=== PATIENT | male | born 1955 | race Caucasian/White ===

== ENCOUNTER 2016-12-06 15:15 | Inpatient (IN) | payer OTHER, MEDICAID ==
[~2016-12-06] VITALS: Ht 177.8 cm; Wt 64.0 kg
[~2016-12-06 15:15] MED LIST: BISA5TAB10 PR; DORZ10DR8 EACH EYE; DULR10 RC; ENOX40DI8 SQ; IPRA4AER INH; LEVE500P IV; LORA0.5T PO; MERO1VIA3 IVPB; METH40VI IVP; NITR0.4T6 SL; OCTR100D IVP; TYLR650 RC; ZINC113O14 TP; [UNRECOGNIZED DRUG - CODE] IVP; [UNRECOGNIZED DRUG - CODE] SUBCUT
[2016-12-06 15:20] VITALS: BP_SYST 123
[2016-12-06 16:48] LABS: BASOPHILS # (AUTO) 0.2 K/uL (0.0-0.2); BASOPHILS % (AUTO) 1.1 % (0.0-2.0); HEMATOCRIT 31.5 % (36-54); HEMOGLOBIN 10.4 g/dL (14.0-18.0); LYMPHOCYTES # (AUTO) 0.4 K/uL (1.0-5.5); LYMPHOCYTES % (AUTO) 2.9 % (20.5-51.5); MEAN CORPUSCULAR HEMOGLOBIN 34 pg (27-31); MEAN CORPUSCULAR HGB CONC 33 % (32-36); MEAN CORPUSCULAR VOLUME 103 fL (79.0-98.0); MONOCYTES # (AUTO) 0.9 K/uL (0.0-1.0); MONOCYTES % (AUTO) 6.3 % (1.7-9.3); NEUTROPHILS # (AUTO) 13.4 K/uL (1.8-7.7); NEUTROPHILS % (AUTO) 89.7 % (40.0-70.0); PLATELET COUNT (AUTO) 124 K/uL (130-430); RED BLOOD CELL COUNT(AUTO) 3.06 MIL/uL (4.2-6.2); RED CELL DISTRIBUTION WIDTH 13.8 % (9.0-15.0); WHITE BLOOD COUNT (AUTO) 14.9 K/uL (4.8-10.8)
[2016-12-06] MEDS ORDERED: VANCOMYCIN HCL 1000 MG/VIAL IV ONE (16:57)
[2016-12-06] MEDS ORDERED: NACL 0.9% 1,000 ML IV ONE ×2 (17:00→17:15)
[2016-12-06] MEDS ORDERED: metroNIDAZOLE 500 mg/NS 100 ML IV ONE (17:00)
[2016-12-06] MEDS ORDERED: VANCOMYCIN HCL 500 MG in NS 100 ML IV ONE (17:00)
[2016-12-06 17:03] LABS: CALCIUM 7.2 mg/dL (8.4-11.0); CREATININE 1.57 mg/dL (0.55-1.30); POTASSIUM 3.8 mmol/L (3.5-5.1)
[2016-12-06 17:08] LABS: ALBUMIN 1.5 g/dL (3.4-4.8); TOTAL BILIRUBIN 1.1 mg/dL (0.0-1.0)
[2016-12-06] MEDS: NACL 0.9% 1,000 ML IV SCH (17:13)
[2016-12-06] MEDS ORDERED: MORPHINE 2 MG/ML INJ. SYRINGE IVP PRN (17:15)
[2016-12-06] MEDS ORDERED: SIMETHICONE 80 MG TAB.CHEW PO PRN (17:15)
[2016-12-06] MEDS ORDERED: ACETAMINOPHEN 325 MG TABLET PO PRN (17:15)
[2016-12-06] MEDS ORDERED: ZOLPIDEM TARTRATE 5 MG TABLET PO PRN (17:15)
[2016-12-06] MEDS ORDERED: ONDANSETRON HCL 4 MG/2 ML VIAL IVP PRN (17:15)
[2016-12-06] MEDS ORDERED: POTASSIUM CHLORIDE 20 MEQ TAB.PRT.SR PO PRN (17:15)
[2016-12-06] MEDS ORDERED: KETOROLAC TROMETHAMINE 15 MG VIAL IVP PRN (17:15)
[2016-12-06] MEDS ORDERED: BISACODYL 10 MG/SUPPOSITORY RC PRN (17:15)
[2016-12-06] MEDS ORDERED: LORazepam 2 MG/ML VIAL IVP PRN (17:15)
[2016-12-06] MEDS ORDERED: HYDROcodone/ACETAMIN 10-325 MG TAB PO PRN (17:15)
[2016-12-06 17:25] LABS: C-REACTIVE PROTEIN QUANT 29.6 mg/dL (0-0.5)
[2016-12-06 17:54] LABS: PHOSPHORUS 4.5 mg/dL (2.7-4.5)
[2016-12-06] MEDS ORDERED: metroNIDAZOLE 500 mg/NS 100 ML IV SCH (18:00)
[2016-12-06 18:25] VITALS: BP_SYST 116
[2016-12-06 18:29] LABS: THYROID STIMULATING HORMONE 1.78 uIu/mL (0.34-4.82)
[2016-12-06 18:43] LABS: BILIRUBIN,URINE 1+ (NEGATIVE); BLOOD, URINE 3+ (NEGATIVE); CLARITY/URINE CLOUDY (CLEAR); COLOR,URINE AMBER (YELLOW); GLUCOSE,URINE NEGATIVE (NEGATIVE); KETONES,URINE NEGATIVE (NEGATIVE); LEUKOCYTE ESTERASE ,URINE TRACE (NEGATIVE); NITRITE, URINE POSITIVE (NEGATIVE); PH,URINE 5.5 (5.0-8.0); PROTEIN URINE 2+ (NEGATIVE); UROBILINOGEN,URINE 0.2 (0.2-1.0)
[2016-12-06 19:15] LABS: RBC,URINE 20-50 /HPF (0-3)
[2016-12-06 19:16] LABS: BACTERIA,URINE MODERATE /HPF (None Seen); COARSE GRANULAR CASTS,URINE 0-10 /LPF (None Seen); MUCUS,URINE 1+ /LPF (None Seen)
[2016-12-06 19:17] LABS: OTHER CASTS, URINE WBC CASTS 1+ /LPF (None Seen); URINE AMORPHOUS URATE 2+ /HPF (None Seen)
[2016-12-06 20:00] VITALS: BP_SYST 111
[2016-12-06] MEDS: LACTOBACILLUS RHAMNOSUS GG 1 CAP CAPSULE PO SCH (21:00)
[2016-12-06] MEDS: VANCOMYCIN HCL 125 MG CAPSULE PO SCH (21:00)
[2016-12-06] MEDS: PSYLLIUM HUSK 1 PKT PACKET PO SCH (21:00)
[2016-12-07] VITALS (7 sets, daily range): BP systolic 104–166
[2016-12-07] MEDS: metroNIDAZOLE 500 mg/NS 100 ML IV SCH ×5 (00:51→18:05)
[2016-12-07] MEDS: NACL 0.9% 1,000 ML IV SCH ×3 (05:11→14:53)
[2016-12-07 06:29] LABS: BASOPHILS # (AUTO) 0.1 K/uL (0.0-0.2); BASOPHILS % (AUTO) 0.9 % (0.0-2.0); EOSINOPHILS # (AUTO) 0.1 K/uL (0.0-0.4); EOSINOPHILS % (AUTO) 0.8 % (0.0-4.0); HEMATOCRIT 32.2 % (36-54); HEMOGLOBIN 10.8 g/dL (14.0-18.0); LYMPHOCYTES # (AUTO) 0.3 K/uL (1.0-5.5); LYMPHOCYTES % (AUTO) 2.4 % (20.5-51.5); MEAN CORPUSCULAR HEMOGLOBIN 35 pg (27-31); MEAN CORPUSCULAR HGB CONC 34 % (32-36); MEAN CORPUSCULAR VOLUME 104 fL (79.0-98.0); MONOCYTES # (AUTO) 1.1 K/uL (0.0-1.0); MONOCYTES % (AUTO) 7.4 % (1.7-9.3); NEUTROPHILS # (AUTO) 12.7 K/uL (1.8-7.7); NEUTROPHILS % (AUTO) 88.5 % (40.0-70.0); PLATELET COUNT (AUTO) 119 K/uL (130-430); RED BLOOD CELL COUNT(AUTO) 3.09 MIL/uL (4.2-6.2); WHITE BLOOD COUNT (AUTO) 14.3 K/uL (4.8-10.8)
[2016-12-07 06:43] LABS: ANION GAP 10 (5-15); CALCIUM 7.1 mg/dL (8.4-11.0); CHLORIDE 106 mmol/L (98-107); CREATININE 1.37 mg/dL (0.55-1.30); GLUCOSE 113 mg/dL (70-99); HDL CHOLESTEROL 9 mg/dL (>45); LDL CHOLESTEROL 21 mg/dL (<100); POTASSIUM 3.6 mmol/L (3.5-5.1); SODIUM SERUM 135 mmol/L (136-145); TRIGLYCERIDES 62 mg/dL (30-150); UREA NITROGEN, BLOOD 61 mg/dL (8-21)
[2016-12-07 07:14] LABS: GFR AFRICAN AMERICAN 67 mL/min (>90)
[2016-12-07 07:20] LABS: CHOLESTEROL < 50 mg/dL (<200)
[2016-12-07 08:06] LABS: T4 (THYROXINE) 6.1 ug/dL (4.5-12.0)
[2016-12-07] MEDS: PSYLLIUM HUSK 1 PKT PACKET PO SCH ×2 (09:00→21:08)
[2016-12-07] MEDS: LACTOBACILLUS RHAMNOSUS GG 1 CAP CAPSULE PO SCH ×2 (09:57→21:08)
[2016-12-07] MEDS: VANCOMYCIN HCL 125 MG CAPSULE PO SCH ×4 (09:57→21:09)
[2016-12-07] MEDS ORDERED: ONDANSETRON HCL 4 MG/2 ML VIAL IVP PRN (10:30)
[2016-12-07] MEDS ORDERED: MORPHINE 2 MG/ML INJ. SYRINGE IVP PRN ×2 (10:30)
[2016-12-07] MEDS ORDERED: POTASSIUM CHLORIDE 20 MEQ TAB.PRT.SR PO PRN (10:30)
[2016-12-07] MEDS ORDERED: DOCUSATE SODIUM 100 MG CAPSULE PO PRN (10:30)
[2016-12-07] MEDS ORDERED: LORazepam 2 MG/ML VIAL IVP PRN (10:30)
[2016-12-07] MEDS ORDERED: ACETAMINOPHEN 325 MG TABLET PO PRN (10:30)
[2016-12-07] MEDS ORDERED: ZOLPIDEM TARTRATE 5 MG TABLET PO PRN (10:30)
[2016-12-07] MEDS ORDERED: MAGNESIUM SULFATE 50 ML IV PRN (10:30)
[2016-12-07] MEDS ORDERED: IPRATROPIUM/ALBUTEROL SULFATE 120 PUFFS/4 GM INH INH SCH (10:30)
[2016-12-07 12:22] LABS: INR 1.3 (0.80-1.20); PROTHROMBIN TIME 13.7 SECS (9.5-12.5)
[2016-12-07] MEDS ORDERED: IPRATROPIUM/ALBUTEROL SULFATE 3 ML AMPUL.NEB INH PRN (13:15)
[2016-12-07] MEDS ORDERED: levETIRAcetam 500 MG IV PREMIX 100 ML IV SCH (14:00)
[2016-12-07] MEDS: levETIRAcetam 1,000 MG in NS 100 ML IV SCH ×2 (14:53→21:09)
[2016-12-07 15:29] LABS: HEMOGLOBIN A1C 4.6 % (4.8-5.6)
[2016-12-07] MEDS: DORZOLAMIDE 2% OPHTHALMIC SOLN 5ML OP SCH (21:07)
[2016-12-07] MEDS: HEPARIN SODIUM,PORCINE 5000 UNITS/ML VIAL SUBCUT SCH (21:11)
[2016-12-08] VITALS: BP_SYST 121
[2016-12-08] MEDS: metroNIDAZOLE 500 mg/NS 100 ML IV SCH ×4 (00:28→18:04)
[2016-12-08 03:19] VITALS: BP_SYST 120
[2016-12-08] MEDS: NACL 0.9% 1,000 ML IV SCH ×2 (05:28→21:43)
[2016-12-08] MEDS: levETIRAcetam 1,000 MG in NS 100 ML IV SCH ×3 (05:32→21:42)
[2016-12-08 07:11] LABS: HEMATOCRIT 32.3 % (36-54); HEMOGLOBIN 10.8 g/dL (14.0-18.0); MEAN CORPUSCULAR HEMOGLOBIN 35 pg (27-31); MEAN CORPUSCULAR HGB CONC 33 % (32-36); MEAN CORPUSCULAR VOLUME 103 fL (79.0-98.0); PLATELET COUNT (AUTO) 93 K/uL (130-430); RED BLOOD CELL COUNT(AUTO) 3.13 MIL/uL (4.2-6.2); RED CELL DISTRIBUTION WIDTH 13.8 % (9.0-15.0); WHITE BLOOD COUNT (AUTO) 10.7 K/uL (4.8-10.8)
[2016-12-08 07:34] LABS: CALCIUM 8.1 mg/dL (8.4-11.0); CREATININE 1.54 mg/dL (0.55-1.30); POTASSIUM 3.9 mmol/L (3.5-5.1)
[2016-12-08 08:06] VITALS: BP_SYST 116
[2016-12-08] MEDS: LACTOBACILLUS RHAMNOSUS GG 1 CAP CAPSULE PO SCH ×2 (08:30→21:38)
[2016-12-08] MEDS: VANCOMYCIN HCL 125 MG CAPSULE PO SCH ×3 (08:30→18:09)
[2016-12-08] MEDS: PSYLLIUM HUSK 1 PKT PACKET PO SCH ×2 (08:31→21:38)
[2016-12-08] MEDS: HEPARIN SODIUM,PORCINE 5000 UNITS/ML VIAL SUBCUT SCH ×2 (08:34→21:41)
[2016-12-08] MEDS: DORZOLAMIDE 2% OPHTHALMIC SOLN 5ML OP SCH ×2 (08:39→21:45)
[2016-12-08 08:54] LABS: BAND % (MANUAL) 9 % (0-6); BASOPHILS % (MANUAL) 0 % (0-2); EOSINOPHILS % (MANUAL) 0 % (0-7); LYMPHOCYTES % (MANUAL) 1 % (20-46); MONOCYTES % (MANUAL) 12 % (0-11)
[2016-12-08 12:07] VITALS: BP_SYST 96
[2016-12-08 16:11] VITALS: BP_SYST 109
[2016-12-08 20:00] VITALS: BP_SYST 115
[2016-12-08] MEDS: VANCOMYCIN HCL 250 MG CAPSULE PO SCH (21:38)
[2016-12-09] VITALS (10 sets, daily range): BP systolic 75–147
[2016-12-09] MEDS: metroNIDAZOLE 500 mg/NS 100 ML IV SCH ×4 (00:13→17:55)
[2016-12-09] MEDS: levETIRAcetam 1,000 MG in NS 100 ML IV SCH (05:29)
[2016-12-09 06:18] LABS: HEMATOCRIT 32.7 % (36-54); HEMOGLOBIN 10.6 g/dL (14.0-18.0); MEAN CORPUSCULAR HEMOGLOBIN 34 pg (27-31); MEAN CORPUSCULAR HGB CONC 33 % (32-36); MEAN CORPUSCULAR VOLUME 104 fL (79.0-98.0); PLATELET COUNT (AUTO) 114 K/uL (130-430); RED BLOOD CELL COUNT(AUTO) 3.14 MIL/uL (4.2-6.2); RED CELL DISTRIBUTION WIDTH 14.4 % (9.0-15.0)
[2016-12-09 06:29] LABS: CALCIUM 7.5 mg/dL (8.4-11.0); CREATININE 1.76 mg/dL (0.55-1.30); POTASSIUM 3.8 mmol/L (3.5-5.1)
[2016-12-09 08:34] LABS: BAND % (MANUAL) 8 % (0-6); BASOPHILS % (MANUAL) 0 % (0-2); EOSINOPHILS % (MANUAL) 0 % (0-7); LYMPHOCYTES % (MANUAL) 3 % (20-46); MONOCYTES % (MANUAL) 6 % (0-11)
[2016-12-09] MEDS: IPRATROPIUM/ALBUTEROL SULFATE 3 ML AMPUL.NEB INH SCH ×3 (09:45→17:53)
[2016-12-09] MEDS ORDERED: D5NS 1,000 ML IV SCH (09:45)
[2016-12-09] MEDS: PSYLLIUM HUSK 1 PKT PACKET PO SCH (10:02)
[2016-12-09] MEDS: DORZOLAMIDE 2% OPHTHALMIC SOLN 5ML OP SCH (10:02)
[2016-12-09] MEDS: VANCOMYCIN HCL 250 MG CAPSULE PO SCH ×3 (10:03→17:18)
[2016-12-09] MEDS: LACTOBACILLUS RHAMNOSUS GG 1 CAP CAPSULE PO SCH (10:03)
[2016-12-09] MEDS: HEPARIN SODIUM,PORCINE 5000 UNITS/ML VIAL SUBCUT SCH (10:04)
[2016-12-09] MEDS ORDERED: NS 250 ML IV ONE ×2 (11:15→11:45)
[2016-12-09] MEDS ORDERED: HYDROCORTISONE SOD SUCC 100 MG/2 ML VIAL ONE (11:40)
[2016-12-09] MEDS ORDERED: SODIUM BICARBONATE 8.4% JECT 50 MEQ/50 ML SYRINGE ONE (11:42)
[2016-12-09] MEDS ORDERED: SODIUM BICARBONATE 8.4% JECT 50 MEQ/50 ML SYRINGE IVP ONE (11:45)
[2016-12-09] MEDS ORDERED: NOREPINEPHRINE BITARTRATE 4 MG in NS 246 ML IV PRN (11:45)
[2016-12-09] MEDS ORDERED: HYDROCORTISONE SOD SUCC 100 MG/2 ML VIAL IVP SCH (12:00)
[2016-12-09] MEDS ORDERED: MIDAZOLAM HCL 5 MG/5 ML VIAL ONE (13:00)
[2016-12-09] MEDS ORDERED: SODIUM BICARBONATE 650 MG TABLET PO SCH (15:00)
[2016-12-09] MEDS ORDERED: LORazepam 2 MG/ML VIAL IVP PRN (15:15)
[2016-12-09] MEDS ORDERED: MORPHINE 2 MG/ML INJ. SYRINGE IVP PRN ×2 (15:15)
[2016-12-09] MEDS ORDERED: NOREPINEPHRINE 4 MG/4 ML VIAL IV ONE (15:33)
[2016-12-09] MEDS ORDERED: HEPARIN SODIUM,PORCINE 5000 UNITS/ML VIAL ONE (18:00)
[2016-12-09] MEDS ORDERED: PIPERACILLIN/TAZO 2.25G/DEX-IS 50 ML IV SCH (18:00)
[2016-12-09] MEDS ORDERED: CALCIUM 500 MG/TAB PO SCH (21:00)
[2016-12-09] MEDS ORDERED: levETIRAcetam 1,000 MG in D5W 100 ML IV SCH (22:00)
== END 2016-12-09 23:31 | disposition expired | DRG 871 ==
LOC: SED 15:15 → STU 16:51 → SMU 12-07 11:02 → SIC 12-09 11:06
PROVIDERS: ADMIT Family Medicine; ATTEND Family Medicine
PROC: 02HV33Z Insertion of Infusion Device into Superior Vena Cava, Percutaneous Approach (ICD-10-PCS; 2016-12-08)
PROC: B548ZZA Ultrasonography of Superior Vena Cava, Guidance (ICD-10-PCS; 2016-12-08)
PROC: 0BH17EZ Insertion of Endotracheal Airway into Trachea, Via Natural or Artificial Opening (ICD-10-PCS; principal; 2016-12-09)
PROC: 5A1935Z Respiratory Ventilation, Less than 24 Consecutive Hours (ICD-10-PCS; 2016-12-09)
PROC: 5A12012 Performance of Cardiac Output, Single, Manual (ICD-10-PCS; 2016-12-09)
DX: A41.9 Sepsis, unspecified organism (principal); E43 Unspecified severe protein-calorie malnutrition; J96.00 Acute respiratory failure, unspecified whether with hypoxia or hypercapnia; I46.9 Cardiac arrest, cause unspecified; J69.0 Pneumonitis due to inhalation of food and vomit; L89.159 Pressure ulcer of sacral region, unspecified stage; R65.21 Severe sepsis with septic shock; A04.71 Enterocolitis due to Clostridium difficile, recurrent; E87.1 Hypo-osmolality and hyponatremia; N39.0 Urinary tract infection, site not specified; D64.9 Anemia, unspecified; E11.9 Type 2 diabetes mellitus without complications; E83.51 Hypocalcemia; G40.909 Epilepsy, unspecified, not intractable, without status epilepticus; G80.9 Cerebral palsy, unspecified; K21.9 Gastro-esophageal reflux disease without esophagitis; L89.899 Pressure ulcer of other site, unspecified stage; H54.7 Unspecified visual loss; J44.9 Chronic obstructive pulmonary disease, unspecified; F32.9 Major depressive disorder, single episode, unspecified; G89.29 Other chronic pain; Z68.20 Body mass index [BMI] 20.0-20.9, adult; Z88.2 Allergy status to sulfonamides; Z79.899 Other long term (current) drug therapy; Z90.5 Acquired absence of kidney
CPT/HCPCS: 36415; 36600; 71010; 74000-TC; 80048; 80053; 80061; 81000-TC; 82150-TC; 82803-TC; 83036; 83605; 83690-TC; 83735-TC; 83880; 84100-TC; 84436; 84439; 84443-TC; 84479; 84484; 85007; 85025; 85027; 85610-TC; 85730-TC; 86140; 87070-TC; 87081; 87086; 87186-TC; 87205-TC; 92950; 94002; 94640; 94760; 96361; 96365; 99285; C1751; C1769; J1644; J1720; J1953; J2060; J2250; J2270; J2543; J3370; J3490; J7030; J7040; J7042; J7050; J7060